=== PATIENT | female | born 1995 | race African-American/Black ===

== ENCOUNTER 2018-01-07 13:41 | Inpatient (IN) ==
[2018-01-07 15:40] LABS: Apearance,Urine CLEAR (Clear); Bilirubin,Urine Negative (Negative); Blood, Urine Negative (Negative); Glucose,Urine (UA) Negative (Negative); Ketones,Urine 80 mg/dL (Negative); Mucus,Urine Occasional /LPF (Occasional); Nitrite,Urine Negative (Negative); Protein,Urine Negative; RBC,Urine <1 /HPF (0-4); Squamous Epithelial Cell,Urine Occasional /HPF (0-10); Urine Color Straw (Yellow); Urine Specific Gravity 1.005 (1.001-1.035); Urine Urobilinogen < 2.0 EU/DL (0.2-1.0); WBC,Urine 2 /HPF (0-6)
[2018-01-07] MEDS ORDERED: ACETAMINOPHEN 325 MG TABLET PO ONE (16:13)
[2018-01-07] MEDS ORDERED: LABETALOL 100 MG TABLET PO ONE (16:13)
[2018-01-07] MEDS ORDERED: ALUMINUM/MAGNES/SIMETH MAX STR 30 ML UDCUP PO PRN (21:03)
[2018-01-08] MEDS ORDERED: hydrALAZINE 20 MG/1 ML VIAL IV ONE ×2 (08:10→21:41)
[2018-01-08] MEDS ORDERED: LACTATED RINGERS 1,000 ML IV PRN (08:11)
[2018-01-08] MEDS ORDERED: hydrALAZINE 20 MG/1 ML VIAL ONE (08:21)
[2018-01-08 08:34] LABS: Basophils % 0.3 % (0.0-0.8); Eosinophils # 0.1 10*3/uL (0.0-0.87); Eosinophils % 0.8 % (0.00-10.9); Hematocrit 29.6 VOL% (35.7-47.0); Hemoglobin 9.2 GM/DL (12.0-16.0); Immature Granulocytes % 0.3 %; Immature Granulocytes Absolute 0.03 #; Lymphocytes # 2.2 10*3/uL (1.4-4.0); Lymphocytes % 24.5 % (21.3-54.2); Mean Corpuscular HGB Conc 31.1 GM/DL (32-36); Mean Corpuscular Hemoglobin 25 PG (27-34); Mean Corpuscular Volume 80.7 FL (87-102); Mean Platelet Volume 11.4 FL (9.6-12.0); Monocytes # 0.7 10*3/uL (0.11-0.8); Monocytes % 7.5 % (1.7-12.7); Neutrophils % 66.6 % (38.7-73.9); Platelet Count 200 T/CUMM (130-400); Red Blood Count 3.67 MC/CUMM (3.8-5.5); Red Cell Distribution Width 14.7 % (9.3-17.3); White Blood Count 8.9 T/CUMM (4-12)
[2018-01-08 08:40] LABS: INR 0.9; Partial Thromboplastin Time 33.1 SECS (0-40)
[2018-01-08 08:53] LABS: Albumin 2.6 G/DL (3.4-5.0); Bilirubin,Direct 0.19 MG/DL (0.0-0.20); Bilirubin,Total 0.6 MG/DL (0.2-1.0); Calcium 8.5 MG/DL (8.5-10.1); Osmolality,Calculated 273.4 MOS/KG (273-304); Total Protein 6.9 G/DL (6.4-8.3); Uric Acid 3.1 MG/DL (2.6-6.0)
[2018-01-08 09:00] LABS: Potassium 2.4 MMOL/L (3.5-5.1)
[2018-01-08] MEDS ORDERED: MAGNESIUM CITRATE 300 ML BOTTLE PO ONE (09:20)
[2018-01-08] MEDS ORDERED: LABETALOL 200 MG TABLET PO SCH (09:30)
[2018-01-08 10:08] LABS: Apearance,Urine CLOUDY (Clear); Bacteria,Urine Occasional /HPF (Few); Bilirubin,Urine Negative (Negative); Blood, Urine Negative (Negative); Glucose,Urine (UA) Negative (Negative); Ketones,Urine 80 mg/dL (Negative); Mucus,Urine Occasional /LPF (Occasional); Nitrite,Urine Negative (Negative); Protein,Urine Negative; RBC,Urine 1 /HPF (0-4); Squamous Epithelial Cell,Urine Few /HPF (0-10); Transitional Epi Cells,Urine Occasional /HPF (<1); Urine Color Yellow (Yellow); Urine Specific Gravity 1.009 (1.001-1.035); Urine Urobilinogen < 2.0 EU/DL (0.2-1.0); WBC,Urine 6 /HPF (0-6)
[2018-01-08] MEDS: LACTATED RINGERS 1,000 ML IV SCH ×2 (11:24→21:02)
[2018-01-08] MEDS ORDERED: OXYTOCIN/LR 20 UNIT/1,000 ML BAG IV SCH (13:00)
[2018-01-08] MEDS: ONDANSETRON 4 MG/2 ML VIAL IV PRN (13:58)
[2018-01-08] MEDS: BUTORPHANOL 2 MG/ML VIAL IV PRN ×2 (13:58→18:49)
[2018-01-08] MEDS ORDERED: MAGNESIUM SULF RIDER 100 ML IV ONE (14:26)
[2018-01-08] MEDS: LABETALOL 200 MG TABLET PO SCH ×2 (14:35→23:18)
[2018-01-08] MEDS: MAGNESIUM SULF DRIP 40 GM/1,000 ML ML IV SCH (15:00)
[2018-01-08] MEDS ORDERED: hydrOXYzine HCL 25 MG/1 ML VIAL IM PRN (20:42)
[2018-01-08] MEDS ORDERED: ePHEDrine 50 MG/ML AMP IV PRN (20:42)
[2018-01-08] MEDS ORDERED: NALOXONE 0.4 MG/ML VIAL IV PRN (20:42)
[2018-01-08] MEDS ORDERED: PROMETHAZINE 25 MG/1 ML VIAL IM ONE (20:42)
[2018-01-08] MEDS ORDERED: FAMOTIDINE 20 MG/2 ML VIAL IV ONE (20:42)
[2018-01-08] MEDS ORDERED: diphenhydrAMINE 50 MG/1 ML VIAL IV PRN ×2 (20:42)
[2018-01-08] MEDS ORDERED: CITRIC ACID/SODIUM CITRATE 30 ML UDCUP PO ONE (20:42)
[2018-01-08] MEDS ORDERED: fentaNYL 2 MCG/ROPIV 0.2% EPID 100 ML EPIDURAL SCH (21:00)
[2018-01-09] MEDS: LABETALOL 200 MG TABLET PO SCH ×3 (06:43→22:35)
[2018-01-09] MEDS ORDERED: CITRIC ACID/SODIUM CITRATE 30 ML UDCUP ONE (09:30)
[2018-01-09] MEDS ORDERED: ceFAZolin 2,000 MG in PREMIX 1 EACH IV ONE (09:34)
[2018-01-09] MEDS ORDERED: FAMOTIDINE 20 MG/2 ML VIAL IV ONE (10:00)
[2018-01-09] MEDS ORDERED: CITRIC ACID/SODIUM CITRATE 30 ML UDCUP PO ONE (10:00)
[2018-01-09] MEDS ORDERED: ACETAMINOPHEN 325 MG TABLET PO PRN (10:02)
[2018-01-09] MEDS ORDERED: ONDANSETRON 4 MG/2 ML VIAL IV PRN (10:02)
[2018-01-09] MEDS ORDERED: SIMETHICONE CHEW 80 MG TABLET PO PRN (10:02)
[2018-01-09] MEDS ORDERED: OXYTOCIN/LR 20 UNIT/1,000 ML BAG IV ONE (10:02)
[2018-01-09] MEDS ORDERED: LACTATED RINGERS 1,000 ML IV SCH (10:30)
[2018-01-09] MEDS ORDERED: RHO(D) IMMUNE GLOBULIN 300 MCG SYRINGE IM ONE (10:30)
[2018-01-09] MEDS ORDERED: TISSUE ADHESIVE 1 EACH APPLICATOR TOP ONE (10:56)
[2018-01-09] MEDS ORDERED: MORPHINE 10 MG/10 ML VIAL ONE (11:26)
[2018-01-09] MEDS ORDERED: ONDANSETRON 4 MG/2 ML VIAL ONE (11:26)
[2018-01-09] MEDS ORDERED: LACTATED RINGERS 2,000 ML IV ONE (11:27)
[2018-01-09] MEDS ORDERED: PHENYLEPHRINE 1 MG/10 ML SYRINGE IV ONE (11:27)
[2018-01-09] MEDS ORDERED: POTASSIUM CHLORIDE 20 MEQ TABLET PO SCH (13:00)
[2018-01-09 13:23] LABS: Basophils % 0.2 % (0.0-0.8); Eosinophils % 0.2 % (0.00-10.9); Hematocrit 31.9 VOL% (35.7-47.0); Immature Granulocytes % 0.5 %; Immature Granulocytes Absolute 0.05 #; Lymphocytes # 1.4 10*3/uL (1.4-4.0); Lymphocytes % 13.4 % (21.3-54.2); Mean Corpuscular HGB Conc 31.3 GM/DL (32-36); Mean Corpuscular Hemoglobin 25 PG (27-34); Mean Corpuscular Volume 80.6 FL (87-102); Mean Platelet Volume 11.2 FL (9.6-12.0); Monocytes % 9.6 % (1.7-12.7); Neutrophils # 7.9 10*3/uL (1.4-7.4); Neutrophils % 76.1 % (38.7-73.9); Platelet Count 222 T/CUMM (130-400); Red Blood Count 3.96 MC/CUMM (3.8-5.5); Red Cell Distribution Width 14.9 % (9.3-17.3); White Blood Count 10.4 T/CUMM (4-12)
[2018-01-09 13:33] LABS: INR 0.9; PT Patient Result 9.3 SECS; Partial Thromboplastin Time 32.3 SECS (0-40)
[2018-01-09 13:38] LABS: Albumin 2.3 G/DL (3.4-5.0); Bilirubin,Direct 0.46 MG/DL (0.0-0.20); Bilirubin,Total 0.8 MG/DL (0.2-1.0); Calcium 8.4 MG/DL (8.5-10.1); Osmolality,Calculated 276.3 MOS/KG (273-304); Potassium 2.8 MMOL/L (3.5-5.1); Total Protein 6.6 G/DL (6.4-8.3); Uric Acid 5.6 MG/DL (2.6-6.0)
[2018-01-09] MEDS: MAGNESIUM SULF DRIP 40 GM/1,000 ML ML IV SCH (13:40)
[2018-01-09] MEDS ORDERED: ceFAZolin 1,000 MG in SYRINGE 1 EACH IV SCH (16:00)
[2018-01-09] MEDS: ceFAZolin 2,000 MG in PREMIX 1 EACH IV SCH (19:04)
[2018-01-09] MEDS: POTASSIUM CHLORIDE 20 MEQ/15 ML UDCUP PO SCH ×2 (19:05→22:35)
[2018-01-09] MEDS: DOCUSATE SODIUM 100 MG CAPSULE PO SCH (21:30)
[2018-01-09] MEDS: IBUPROFEN 800 MG TABLET PO PRN (23:03)
[2018-01-10] MEDS: ceFAZolin 2,000 MG in PREMIX 1 EACH IV SCH ×2 (02:30→10:17)
[2018-01-10] MEDS: POTASSIUM CHLORIDE 20 MEQ/15 ML UDCUP PO SCH (02:30)
[2018-01-10] MEDS: LABETALOL 200 MG TABLET PO SCH ×3 (06:38→21:56)
[2018-01-10] MEDS: DOCUSATE SODIUM 100 MG CAPSULE PO SCH ×2 (10:14→21:18)
[2018-01-10] MEDS: IBUPROFEN 800 MG TABLET PO PRN ×2 (14:12→22:59)
[2018-01-10] MEDS: MULTIVITAMIN (PRENATAL) TABLET PO SCH (14:15)
[2018-01-10] MEDS: oxyCODONE/ACETAMINOPHEN 5-325 MG TABLET PO PRN ×2 (18:18→22:59)
[2018-01-10] MEDS: MAGNESIUM HYDROXIDE SUSP 30 ML UDCUP PO PRN (21:18)
[2018-01-11] MEDS: oxyCODONE/ACETAMINOPHEN 5-325 MG TABLET PO PRN ×3 (04:34→22:25)
[2018-01-11] MEDS: LABETALOL 200 MG TABLET PO SCH ×3 (06:30→22:25)
[2018-01-11] MEDS: DOCUSATE SODIUM 100 MG CAPSULE PO SCH ×2 (09:04→20:25)
[2018-01-11] MEDS: MULTIVITAMIN (PRENATAL) TABLET PO SCH (09:04)
[2018-01-11] MEDS: IBUPROFEN 800 MG TABLET PO PRN ×2 (14:41→22:24)
[2018-01-11] MEDS ORDERED: POTASSIUM CHLORIDE 20 MEQ/15 ML UDCUP PER TUBE PRN (16:55)
[2018-01-11] MEDS: POTASSIUM CHLORIDE 20 MEQ/15 ML UDCUP PO PRN ×3 (18:24→22:25)
[2018-01-11] MEDS: MAGNESIUM HYDROXIDE SUSP 30 ML UDCUP PO PRN (20:25)
[2018-01-12] MEDS: POTASSIUM CHLORIDE 20 MEQ/15 ML UDCUP PO PRN ×4 (00:30→14:49)
[2018-01-12] MEDS: oxyCODONE/ACETAMINOPHEN 5-325 MG TABLET PO PRN ×4 (06:02→21:25)
[2018-01-12] MEDS: IBUPROFEN 800 MG TABLET PO PRN ×2 (06:02→18:05)
[2018-01-12] MEDS: LABETALOL 200 MG TABLET PO SCH ×4 (06:02→21:25)
[2018-01-12] MEDS: MULTIVITAMIN (PRENATAL) TABLET PO SCH (08:51)
[2018-01-12] MEDS: DOCUSATE SODIUM 100 MG CAPSULE PO SCH ×2 (08:51→20:41)
[2018-01-12] MEDS: LACTATED RINGERS 1,000 ML IV SCH (16:45)
[2018-01-12] MEDS: POTASSIUM CHLORIDE RIDER 10 MEQ in PREMIX 1 EACH IV PRN ×4 (18:04→23:21)
[2018-01-13] MEDS: POTASSIUM CHLORIDE RIDER 10 MEQ in PREMIX 1 EACH IV PRN (01:06)
[2018-01-13] MEDS: LABETALOL 200 MG TABLET PO SCH ×4 (02:08→21:39)
[2018-01-13] MEDS: IBUPROFEN 800 MG TABLET PO PRN ×3 (02:52→21:39)
[2018-01-13] MEDS: oxyCODONE/ACETAMINOPHEN 5-325 MG TABLET PO PRN ×3 (02:52→20:40)
[2018-01-13] MEDS ORDERED: FUROSEMIDE 20 MG/2 ML VIAL IV ONE (09:05)
[2018-01-13] MEDS: MULTIVITAMIN (PRENATAL) TABLET PO SCH (09:27)
[2018-01-13] MEDS: DOCUSATE SODIUM 100 MG CAPSULE PO SCH ×2 (09:29→20:40)
[2018-01-13] MEDS: POTASSIUM CHLORIDE RIDER 10 MEQ in PREMIX 1 EACH IV SCH ×2 (13:17→15:53)
[2018-01-13] MEDS: POTASSIUM CHLORIDE 20 MEQ/15 ML UDCUP PO SCH ×2 (16:49→20:40)
[2018-01-13] MEDS ORDERED: POTASSIUM CHLORIDE INJ 40 MEQ, SODIUM CHLORIDE 23.4% CONC INJ 38.5 MEQ in STERILE WATER... IV SCH (17:00)
[2018-01-13] MEDS: SPIRONOLACTONE 25 MG TABLET PO SCH (20:40)
[2018-01-13] MEDS: MAGNESIUM HYDROXIDE SUSP 30 ML UDCUP PO PRN (20:41)
[2018-01-13] MEDS ORDERED: POTASSIUM CHLORIDE 20 MEQ/15 ML UDCUP PO SCH (21:00)
[2018-01-14] MEDS: oxyCODONE/ACETAMINOPHEN 5-325 MG TABLET PO PRN (01:24)
[2018-01-14] MEDS ORDERED: ACETAMINOPHEN 500 MG TABLET ONE (01:28)
[2018-01-14] MEDS: ACETAMINOPHEN 500 MG TABLET PO PRN (01:34)
[2018-01-14 02:56] LABS: Calcium 8.4 MG/DL (8.5-10.1); Osmolality,Calculated 280.1 MOS/KG (273-304); Potassium 3.5 MMOL/L (3.5-5.1)
[2018-01-14] MEDS: LABETALOL 200 MG TABLET PO SCH ×4 (05:12→22:45)
[2018-01-14] MEDS: IBUPROFEN 800 MG TABLET PO PRN ×3 (05:12→22:40)
[2018-01-14] MEDS: LACTATED RINGERS 1,000 ML IV SCH (05:58)
[2018-01-14] MEDS: POTASSIUM CHLORIDE RIDER 10 MEQ in PREMIX 1 EACH IV SCH (05:58)
[2018-01-14] MEDS ORDERED: FUROSEMIDE 40 MG/4 ML VIAL IV ONE (06:38)
[2018-01-14] MEDS: CAPTOPRIL 6.25 MG TABLET PO SCH ×3 (07:09→18:15)
[2018-01-14] MEDS: CARVEDILOL 3.125 MG TABLET PO SCH ×3 (07:09→18:15)
[2018-01-14] MEDS: MULTIVITAMIN (PRENATAL) TABLET PO SCH (09:43)
[2018-01-14] MEDS: DOCUSATE SODIUM 100 MG CAPSULE PO SCH ×2 (09:43→20:30)
[2018-01-14] MEDS: POTASSIUM CHLORIDE 20 MEQ/15 ML UDCUP PO SCH ×3 (09:43→20:29)
[2018-01-14] MEDS: SPIRONOLACTONE 25 MG TABLET PO SCH ×2 (09:45→20:29)
[2018-01-14] MEDS: FUROSEMIDE 40 MG/4 ML VIAL IV SCH ×2 (14:44→20:29)
[2018-01-14] MEDS ORDERED: PROMETHAZINE 25 MG/1 ML VIAL IM PRN (17:03)
[2018-01-15] MEDS: CAPTOPRIL 6.25 MG TABLET PO SCH ×2 (02:31→06:22)
[2018-01-15] MEDS: CARVEDILOL 3.125 MG TABLET PO SCH ×2 (02:31→06:22)
[2018-01-15 03:47] LABS: Basophils % 0.3 % (0.0-0.8); Eosinophils # 0.1 10*3/uL (0.0-0.87); Eosinophils % 0.7 % (0.00-10.9); Hematocrit 22.4 VOL% (35.7-47.0); Hemoglobin 7.1 GM/DL (12.0-16.0); Immature Granulocytes % 0.7 %; Immature Granulocytes Absolute 0.08 #; Lymphocytes # 2.5 10*3/uL (1.4-4.0); Lymphocytes % 21.1 % (21.3-54.2); Mean Corpuscular HGB Conc 31.7 GM/DL (32-36); Mean Corpuscular Hemoglobin 25 PG (27-34); Mean Corpuscular Volume 77.5 FL (87-102); Mean Platelet Volume 10.3 FL (9.6-12.0); Monocytes % 8.4 % (1.7-12.7); NRBC # 0.03 10*3/uL; Neutrophils # 8.2 10*3/uL (1.4-7.4); Neutrophils % 68.8 % (38.7-73.9); Platelet Count 389 T/CUMM (130-400); Red Blood Count 2.89 MC/CUMM (3.8-5.5); Red Cell Distribution Width 14.7 % (9.3-17.3); White Blood Count 11.9 T/CUMM (4-12)
[2018-01-15 04:13] LABS: Albumin 2.3 G/DL (3.4-5.0); Bilirubin,Total 0.8 MG/DL (0.2-1.0); Calcium 8.1 MG/DL (8.5-10.1); Osmolality,Calculated 277.3 MOS/KG (273-304); Potassium 3.4 MMOL/L (3.5-5.1); Total Protein 6.5 G/DL (6.4-8.3)
[2018-01-15 04:54] LABS: ABG Base Excess 5.6 MMOL/L (-2.5-2.5); ABG HCO3 29.5 MMOL/L (20-26); ABG Oxygen Saturation 97.1 % (95-100); ABG PCO2 42.7 MM HG (35-48); ABG PH 7.455 (7.35-7.45); ABG PO2 87.5 MM HG (80-95); ABG TCO2 28.2 MMOL/L (23-27); Allen Test Positive
[2018-01-15] MEDS: ACETAMINOPHEN 500 MG TABLET PO PRN (05:28)
[2018-01-15] MEDS ORDERED: MAGNESIUM SULF RIDER 4 GM in PREMIX 1 EACH IV PRN (08:08)
[2018-01-15] MEDS: MAGNESIUM SULF RIDER 2 GM in PREMIX 1 EACH IV PRN ×2 (08:23→10:26)
[2018-01-15] MEDS: FUROSEMIDE 40 MG/4 ML VIAL IV SCH ×3 (08:24→20:48)
[2018-01-15] MEDS: POTASSIUM CHLORIDE 20 MEQ/15 ML UDCUP PO SCH ×3 (08:24→20:47)
[2018-01-15] MEDS: SPIRONOLACTONE 25 MG TABLET PO SCH ×2 (08:24→20:45)
[2018-01-15] MEDS: LABETALOL 200 MG TABLET PO SCH ×3 (08:24→22:16)
[2018-01-15] MEDS: MULTIVITAMIN (PRENATAL) TABLET PO SCH (08:25)
[2018-01-15] MEDS: DOCUSATE SODIUM 100 MG CAPSULE PO SCH ×2 (09:32→20:46)
[2018-01-15] MEDS: ONDANSETRON 4 MG/2 ML VIAL IV PRN (10:26)
[2018-01-15] MEDS: IBUPROFEN 800 MG TABLET PO PRN ×2 (13:37→20:44)
[2018-01-15] MEDS: LOSARTAN 50 MG TABLET PO SCH ×2 (14:47→20:46)
[2018-01-15] MEDS: MAGNESIUM CHLORIDE 64 MG TABLET PO SCH ×2 (14:47→20:45)
[2018-01-15] MEDS ORDERED: CAPTOPRIL 12.5 MG TABLET PO SCH (15:00)
[2018-01-16 06:11] LABS: Albumin 2.4 G/DL (3.4-5.0); Bilirubin,Total 0.4 MG/DL (0.2-1.0); Calcium 8.5 MG/DL (8.5-10.1); Potassium 3.5 MMOL/L (3.5-5.1); Total Protein 6.9 G/DL (6.4-8.3)
[2018-01-16] MEDS: LABETALOL 200 MG TABLET PO SCH ×2 (08:17→14:54)
[2018-01-16] MEDS: LOSARTAN 50 MG TABLET PO SCH (09:23)
[2018-01-16] MEDS: DOCUSATE SODIUM 100 MG CAPSULE PO SCH (09:23)
[2018-01-16] MEDS: POTASSIUM CHLORIDE 20 MEQ/15 ML UDCUP PO SCH (09:23)
[2018-01-16] MEDS: MULTIVITAMIN (PRENATAL) TABLET PO SCH (09:23)
[2018-01-16] MEDS: FUROSEMIDE 40 MG/4 ML VIAL IV SCH (09:24)
[2018-01-16] MEDS: MAGNESIUM CHLORIDE 64 MG TABLET PO SCH (09:31)
[2018-01-16] MEDS ORDERED: amLODIPine 5 MG TABLET PO SCH (11:00)
[2018-01-16] MEDS: IBUPROFEN 800 MG TABLET PO PRN (11:25)
[2018-01-16 12:04] VITALS: BP 128/71
[2018-01-16] MEDS: SPIRONOLACTONE 25 MG TABLET PO SCH (14:41)
[2018-01-16] MEDS ORDERED: DIPH/TET/ACEL PERT BOOSTER VACCINE 0.5 ML VIAL IM ONE (14:41)
[2018-01-16] MEDS ORDERED: INFLUENZA VIRUS VACCINE 0.5 ML SYRINGE IM ONE (14:42)
== END 2018-01-16 15:20 | disposition home or self-care (01) | DRG 540 ==
LOC: N.LDOUT 13:41 → N.LD 13:43 → N.OB 01-10 13:55 → N.ICU 01-14 09:55 → N.OB 01-15 14:14
PROVIDERS: ADMIT Obstetrics & Gynecology; ATTEND Obstetrics & Gynecology
PROC: LDCSECT (ICD-10-PCS; 2018-01-09 09:30)

== ENCOUNTER 2020-05-12 09:43 | Inpatient (IN) ==
[2020-05-12] MEDS ORDERED: ceFAZolin 2,000 MG in PREMIX 1 EACH IV ONE (09:54)
[2020-05-12] MEDS ORDERED: CITRIC ACID/SODIUM CITRATE 30 ML UDCUP PO ONE (09:54)
[2020-05-12] MEDS ORDERED: FAMOTIDINE 20 MG/2 ML VIAL IV ONE (09:54)
[2020-05-12] MEDS ORDERED: LACTATED RINGERS 1,000 ML IV SCH ×2 (10:00→16:30)
[2020-05-12 10:19] LABS: Basophils % 0.3 % (0.0-0.8); Eosinophils # 0.1 10*3/uL (0.0-0.87); Eosinophils % 0.6 % (0.00-10.9); Hematocrit 32.6 VOL% (35.7-47.0); Hemoglobin 10.2 GM/DL (12.0-16.0); Immature Granulocytes % 0.4 %; Immature Granulocytes Absolute 0.04 #; Lymphocytes # 2.7 10*3/uL (1.4-4.0); Lymphocytes % 29.7 % (21.3-54.2); Mean Corpuscular HGB Conc 31.3 GM/DL (32-36); Mean Corpuscular Volume 80.7 FL (87-102); Mean Platelet Volume 11.2 FL (9.6-12.0); Platelet Count 177 T/CUMM (130-400); Red Blood Count 4.04 MC/CUMM (3.8-5.5); Red Cell Distribution Width 13.5 % (9.3-17.3); White Blood Count 9.2 T/CUMM (4-12)
[2020-05-12 10:40] LABS: Alanine Aminotransferase 9 U/L (13-56); Albumin 2.8 G/DL (3.4-5.0); Alkaline Phosphatase 129 U/L (45-117); Aspartate Amino Transferase 7 U/L (0-37); Bilirubin,Total < 0.39 MG/DL (0.2-1.0); Blood Urea Nitrogen 4 MG/DL (7-18); Calcium 8.7 MG/DL (8.5-10.1); Carbon Dioxide 24 MMOL/L (21-32); Estimated Glom Filtration Rate 217 ML/MIN; Glucose 84 MG/DL (74-106); Osmolality,Calculated 268.8 MOS/KG (273-304); Potassium 3.3 MMOL/L (3.5-5.1); Sodium 137 MMOL/L (136-145); Total Protein 7.3 G/DL (5.0-7.5)
[2020-05-12 10:45] LABS: Lymphocytes 28 % (20-55); Platelet Estimate Adequate; Segmented Neutrophils 68 % (50-85); Total Cells Counted 100
[2020-05-12 10:46] LABS: Hypochromasia 1+; Microcytosis 1+
[2020-05-12] MEDS ORDERED: TRANEXAMIC ACID 1,000 MG/10 ML VIAL ONE (11:52)
[2020-05-12] MEDS ORDERED: miSOPROStoL 200 MCG TABLET ONE (11:52)
[2020-05-12] MEDS ORDERED: OXYTOCIN/LR 20 UNIT/1,000 ML BAG IV ONE ×3 (11:52→19:31)
[2020-05-12] MEDS ORDERED: METHYLERGONOVINE 0.2 MG/1 ML AMP ONE (11:53)
[2020-05-12] MEDS ORDERED: CARBOPROST TROMETHAMINE 250 MCG/ML AMP IM ONE (11:54)
[2020-05-12] MEDS ORDERED: OXYTOCIN/LR 30 UNIT/1,000 ML BAG IV ONE (11:55)
[2020-05-12] MEDS ORDERED: OXYTOCIN 10 UNIT/ML VIAL IM ONE (11:57)
[2020-05-12] MEDS ORDERED: DEXAMETHASONE 4 MG/1 ML VIAL ONE ×2 (11:59→12:00)
[2020-05-12] MEDS ORDERED: ONDANSETRON 4 MG/2 ML VIAL ONE (11:59)
[2020-05-12] MEDS ORDERED: MORPHINE 10 MG/10 ML VIAL ONE (12:00)
[2020-05-12] MEDS ORDERED: ROPIVACAINE 0.5% 30 ML VIAL ONE (12:00)
[2020-05-12] MEDS ORDERED: BUPIVACAINE SPINAL 0.75% 2 ML AMP SPINAL ONE (15:15)
[2020-05-12] MEDS ORDERED: PHENYLEPHRINE 1 MG/10 ML SYRINGE IV ONE (15:41)
[2020-05-12 15:57] LABS: Cord Arterial Blood HCO3 22.7 MMOL/L
[2020-05-12 16:00] LABS: Cord Venous Blood HCO3 24.3 MMOL/L; Cord Venous Blood PCO2 48.4 MMHG; Cord Venous Blood PO2 32.1
[2020-05-12 16:10] LABS: Bilirubin,Urine Negative (Negative); Blood, Urine Negative (Negative); Glucose,Urine (UA) Negative (Negative); Ketones,Urine 20 mg/dL (Negative); Mucus,Urine Many /LPF (Occasional); Nitrite,Urine Negative (Negative); Protein,Urine 30 MG/DL; RBC,Urine 1 /HPF (0-4); Squamous Epithelial Cell,Urine Occasional /HPF (0-10); Urine Appearance CLEAR (Clear); Urine Color Yellow (Yellow); Urine Specific Gravity 1.027 (1.001-1.035); Urine Urobilinogen < 2.0 EU/DL (0.2-1.0); WBC,Urine 1 /HPF (0-6)
[2020-05-12] MEDS ORDERED: SIMETHICONE CHEW 80 MG TABLET PO PRN (16:18)
[2020-05-12] MEDS ORDERED: RHO(D) IMMUNE GLOBULIN 300 MCG SYRINGE IM ONE (16:18)
[2020-05-12] MEDS ORDERED: MAGNESIUM HYDROXIDE SUSP 30 ML UDCUP PO PRN (16:18)
[2020-05-12] MEDS ORDERED: ONDANSETRON 4 MG/2 ML VIAL IV PRN (16:18)
[2020-05-12] MEDS ORDERED: ACETAMINOPHEN 325 MG TABLET PO PRN (16:18)
[2020-05-12] MEDS ORDERED: KETOROLAC 30 MG/1 ML VIAL ONE (16:57)
[2020-05-12] MEDS ORDERED: diphenhydrAMINE 50 MG/1 ML VIAL IV PRN (19:50)
[2020-05-12] MEDS: DOCUSATE SODIUM 100 MG CAPSULE PO SCH (21:15)
[2020-05-12 23:38] LABS: Basophils % 0.1 % (0.0-0.8); Hematocrit 31.9 VOL% (35.7-47.0); Hemoglobin 10.5 GM/DL (12.0-16.0); Immature Granulocytes % 0.4 %; Immature Granulocytes Absolute 0.05 #; Lymphocytes # 1.7 10*3/uL (1.4-4.0); Lymphocytes % 12.4 % (21.3-54.2); Mean Corpuscular HGB Conc 32.9 GM/DL (32-36); Mean Corpuscular Volume 79.4 FL (87-102); Monocytes % 3.7 % (1.7-12.7); Neutrophils % 83.4 % (38.7-73.9); Platelet Count 164 T/CUMM (130-400); Red Blood Count 4.02 MC/CUMM (3.8-5.5); Red Cell Distribution Width 13.5 % (9.3-17.3); White Blood Count 13.8 T/CUMM (4-12)
[2020-05-13] MEDS ORDERED: ACETAMINOPHEN/CODEINE 300-30 MG TABLET PO PRN (02:29)
[2020-05-13] MEDS: POTASSIUM CHLORIDE 20 MEQ TABLET PO PRN ×5 (06:17→23:58)
[2020-05-13 06:33] LABS: Basophils % 0.1 % (0.0-0.8); Eosinophils % 0.1 % (0.00-10.9); Hemoglobin 9.6 GM/DL (12.0-16.0); Immature Granulocytes % 0.5 %; Immature Granulocytes Absolute 0.08 #; Lymphocytes # 2.9 10*3/uL (1.4-4.0); Lymphocytes % 19.1 % (21.3-54.2); Mean Corpuscular HGB Conc 33.1 GM/DL (32-36); Mean Corpuscular Volume 78.4 FL (87-102); Mean Platelet Volume 11.6 FL (9.6-12.0); Monocytes % 9.5 % (1.7-12.7); Neutrophils % 70.7 % (38.7-73.9); Platelet Count 157 T/CUMM (130-400); Red Cell Distribution Width 13.5 % (9.3-17.3)
[2020-05-13 06:53] LABS: Hypochromasia 1+; Microcytosis 1+; Ovalocytes Slight; Platelet Estimate Adequate
[2020-05-13] MEDS: MAGNESIUM HYDROXIDE SUSP 30 ML UDCUP PO SCH ×2 (08:45→21:14)
[2020-05-13] MEDS: MULTIVITAMIN (PRENATAL) TABLET PO SCH (08:45)
[2020-05-13] MEDS: METOCLOPRAMIDE 10 MG TABLET PO SCH ×3 (08:45→23:59)
[2020-05-13] MEDS: DOCUSATE SODIUM 100 MG CAPSULE PO SCH ×2 (08:46→21:14)
[2020-05-13] MEDS: ACETAMINOPHEN/CODEINE 300-30 MG TABLET PO PRN ×2 (11:46→21:14)
[2020-05-13] MEDS: IBUPROFEN 800 MG TABLET PO PRN (11:47)
[2020-05-14] MEDS: IBUPROFEN 800 MG TABLET PO PRN (07:58)
[2020-05-14 08:41] VITALS: BP 120/66
[2020-05-14] MEDS: MAGNESIUM HYDROXIDE SUSP 30 ML UDCUP PO SCH (09:52)
[2020-05-14] MEDS: METOCLOPRAMIDE 10 MG TABLET PO SCH (09:56)
[2020-05-14] MEDS: DOCUSATE SODIUM 100 MG CAPSULE PO SCH (09:56)
[2020-05-14] MEDS: MULTIVITAMIN (PRENATAL) TABLET PO SCH (09:56)
[2020-05-14] MEDS ORDERED: INFLUENZA VIRUS VACCINE 0.5 ML SYRINGE IM ONE (11:38)
== END 2020-05-14 12:10 | disposition home or self-care (01) | DRG 540 ==
LOC: N.LD 09:43 → N.OB 22:10
PROVIDERS: ADMIT Obstetrics & Gynecology; ATTEND Obstetrics & Gynecology
PROC: LDCSECT (ICD-10-PCS; 2020-05-12 12:45)